=== PATIENT | male | born 1980 | race African-American/Black ===

== ENCOUNTER 2018-10-20 07:15 | Emergency (ER) | payer BC ==
[~2018-10-20] VITALS: Ht 185.4 cm; Wt 104.3 kg
[2018-10-20] MEDS ORDERED: PROAIR RESPICL90 MCG IH (07:32)
[2018-10-20] MEDS ORDERED: PRED50TA PO (07:32)
--- NOTE | 2018-10-20 07:32 | PHYS DOC ---
Adult General Chief Complaint Chief Complaint: ASTHMA HPI HPI Patient is a 38 year old male presenting with chief complaint of asthma. 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 Similar to previous asthma exacerbations alone he has not had one in a while Review of Systems Review of Systems Constitutional: Denies fever or chills [] Eyes: Denies change in visual acuity, redness, or eye pain [] HENT: Denies nasal congestion or sore throat [] Respiratory: Musculoskeletal: Denies back pain or joint pain [] Integument: Denies rash or skin lesions [] Neurologic: Denies headache, focal weakness or sensory changes [] Endocrine: Denies polyuria or polydipsia [] All other systems were reviewed and found to be within normal limits, except as documented in this note. Current Medications Current Medications Current Medications Medications (Trade) Dose Ordered Sig/Kassy Start Time Stop Time Status Last Admin Dose Admin Albuterol Sulfate (Ventolin Neb Soln) 10 mg 1X ONCE 10/20/18 08:00 10/20/18 08:01 DC 10/20/18 07:58 10 MG Albuterol/ Ipratropium (Duoneb) 3 ml 1X ONCE 10/20/18 08:00 10/20/18 08:01 DC 10/20/18 07:31 3 ML Prednisone (Prednisone) 50 mg 1X ONCE 10/20/18 08:00 10/20/18 08:01 DC 10/20/18 07:30 50 MG Allergies Allergies Allergies Coded Allergies Type Severity Reaction Last Updated Verified No Known Drug Allergies 10/20/18 No Physical Exam Physical Exam Constitutional: Well developed, well nourished, distress, non-toxic appearance. [] HENT: Normocephalic, atraumatic, bilateral external ears normal, oropharynx moist, no oral exudates, nose normal. [] Eyes: PERRLA, EOMI, conjunctiva normal, no discharge. [] Neck: Normal range of motion, no tenderness, supple, no stridor. [] Cardiovascular:Heart rate regular rhythm, no murmur [] Lungs & Thorax: Mild respiratory distress with frequent bronchospastic cough and wheezing noted Abdomen: Bowel sounds normal, soft, no tenderness, no masses, no pulsatile masses. [] Skin: Warm, dry, no erythema, no rash. [] Back: No tenderness, no CVA tenderness. [] Extremities: No tenderness, no cyanosis, no clubbing, ROM intact, no edema. [] Neurologic: Alert and oriented X 3, normal motor function, normal sensory function, no focal deficits noted. [] Psychologic: Affect normal, judgement normal, mood normal. [] Current Patient Data Vital Signs Vital Signs Date Time Temp Pulse Resp B/P (MAP) Pulse Ox O2 Delivery O2 Flow Rate FiO2 10/20/18 07:58 100 Room Air 10/20/18 07:20 98.7 75 30 137/105 (116) 98.7 EKG EKG [] Radiology/Procedures Radiology/Procedures [] Course & Med Decision Making Course & Med Decision Making Pertinent Labs and Imaging studies reviewed. (See chart for details) []Asthma exacerbation improved with DuoNeb and prednisone in the emergency room chest x-ray was negative. Patient received an hour of continuous albuterol therapy due to severe bronchospasm this improved his breathing on reevaluation at 8:30 AM he was breathing much more comfortably his saturation remained normal patient be given a prescription for prednisone and albuterol he is given a work note for a couple days off work as he does work in an environment that may trigger his asthma in the future return precautions were discussed and he voiced understanding instructions His reminded get blood pressure checked within 1 week if she does have a primary care doctor follow-up this Monday which is excellent. Dragon Disclaimer Dragon Disclaimer This electronic medical record was generated, in whole or in part, using a voice recognition dictation system. Departure Departure Impression: Primary Impression: Asthma exacerbation Disposition: HOME, SELF-CARE Condition: STABLE Patient Instructions: Asthma, Acute Bronchospasm Scripts Albuterol Sulfate (Proair Respiclick) 90 Mcg Aer.pow.ba 1 PUFF IH PRN Q6HRS PRN for SHORTNESS OF BREATH, #1 INHALER Prov: TAZ LARIOS MD 10/20/18 Prednisone (PREDNISONE) 50 Mg Tablet 1 TAB PO DAILY, #5 TAB Prov: TAZ LARIOS MD 10/20/18 TAZ LARIOS MD Oct 20, 2018 07:32
--- NOTE | 2018-10-20 07:58 | RAD ---
Chest radiograph 10/20/2018 7:36 AM INDICATION: Cough, asthma attack COMPARISON: October 20, 2011 TECHNIQUE: Portable upright frontal view of the chest is provided. FINDINGS: The cardiomediastinal silhouette is within normal limits. There are no pleural effusions. There is no pulmonary vascular congestion. There is no pneumothorax. The lungs are clear. No significant osseous abnormality is identified. IMPRESSION: No acute cardiopulmonary process. Electronically signed by: Amarilys Rooney MD (10/20/2018 7:54 AM) [facility]
[2018-10-20] MEDS ORDERED: ALBUTEROL SULFATE 2.5 MG/3 ML NEBU. CONT NEB ONE (08:00)
[2018-10-20] MEDS ORDERED: IPRATRPIUM/ALBUTEROL 0.5/2.5MG 3 ML NEBU. NEB ONE (08:00)
[2018-10-20] MEDS ORDERED: predniSONE 10 MG TABLET PO ONE (08:00)
[2018-10-20 08:30] VITALS: BP 147/92
== END 2018-10-20 09:00 | disposition home or self-care (01) ==
LOC: ER 07:15
DX: J45.901 Unspecified asthma with (acute) exacerbation (principal)
CPT/HCPCS: 71045; 94644; 99285; J7512; J7613; J7620; 94640